=== PATIENT | female | born 1990 | race Caucasian/White ===

== ENCOUNTER 2017-04-12 13:35 | Emergency (ER) | payer OTHER ==
[~2017-04-12] VITALS: Ht 162.6 cm; Wt 86.2 kg
[~2017-04-12 13:35] MED LIST: AUGMENTIN 875-1 EACH PO; BENZONATATE200 MG PO; CLARITIN10 MG PO; DELTASONE5 MG PO; FIORICET 325 MG1 TAB PO; FIORICET1 CAP PO; FLAGYL 250MG.250 MG PO; IRON TABLETS325 MG PO; MOTRIN 400MG.400 MG PO; MUCINEX600 M1 PO; PRENATAL1 TA2 PO; SEPTRA DS 800 M1 TAB PO
--- OUTSIDE RECORDS SUMMARY | 2017-04-12 13:39 | External Medical Summary Rpt ---
Author Author [employer] Organization [employer] Address Unknown Phone Unavailable Purpose Continuity of Care Document - through 2016
--- OUTSIDE RECORDS SUMMARY | 2017-04-12 13:39 | External Medical Summary Rpt ---
Author Author JERRY Villarreal, [employer] Organization [employer] Address Unknown Phone Unavailable
--- OUTSIDE RECORDS SUMMARY | 2017-04-12 13:39 | External Medical Summary Rpt ---
Demographics Preferred Language Macanese Marital Status Unknown Hoahaoism Affiliation Unknown Race Unknown Ethnic Group Unknown Author Author , Organization [employer] Address Unknown Phone Unavailable Purpose Continuity of Care Document - through 2016 Immunization No patient found.
--- OUTSIDE RECORDS SUMMARY | 2017-04-12 13:39 | External Medical Summary Rpt ---
Author Author , Organization [employer] Address Unknown Phone Unavailable Care Team Providers Care Bioinformatics Team Member Name Role Phone Naif Conley MD, Unavailable Unavailable Naif Conley MD Purpose Continuity of Care Document - 11-16-2013 through 2016 Problems Code Diagnosis DOS Provider Status 644.03 644.03 THRT 11-17-2013 [facility] ART Allergies, Adverse Reactions, Alerts Type Drug Allergy Adverse Reaction to Substance Substance Reaction Severity Azithromycin Unknown Unknown Medications Na ND Rx Da Fi Fi Am Da Di Ph RX Ph St me C No te ll ll ou ys ag ar # ys at rm s nt no ma ic us Or Da si cy ia de te s n re d MA 00 01 0 No PA 90 -1 P 41 1- Lo 32 98 20 ng 5 26 14 er MG 1 Ac TA ti BL ve ET LA [address] 40 -1 AT 97 0- Lo ED 95 20 ng 30 14 er RI 9 NG Ac ER ti S ve IN JE CT IO N MA 00 01 1 No GN 40 -1 ES 96 0- Lo IU 72 20 ng M 90 14 er VALENCIA 3 LF Ac ti 20 ve G/ 50 0 ML BA G TE 63 01 0 No RB 32 -1 UT 30 0- Lo AL 66 20 ng IN 50 14 er E 1 VALENCIA Ac LF ti 1 ve MG /M L AL DI 00 01 0 No PH 90 -1 EN 45 0- Lo HY [address] 66 14 er AM 1 IN Ac E ti 25 ve MG CA PS UL E Results Labs Lab Lab Date Result Refere Interp Status Commen Order Detail nces retati t Range on Magnesium SerPl-mCnc (11-17-2013 04:55) Magnesi 5.4 1.4-2.2 complet um 014 mg/dL ed SerPl-m 04:55 Cnc URINALYSIS/COMPLETE (11-16-2013 10:20) URINE STRAW YELLOW complet COLOR 014 ed 10:20 URINE CLEAR CLEAR complet APPEARA 014 ed NCE 10:20 URINE NEGATIV NEG complet GLUCOSE 014 E ed - 10:20 DIPSTIC K URINE NEGATIV NEG complet BILIRUB 014 E ed IN - 10:20 DIPSTIC K URINE NEGATIV NEG complet KETONE 014 E mg/dL ed 10:20 URINE Less 1.005-1 complet SPECIFI 014 than or .030 ed C 10:20 equal GRAVITY to 1.005 URINE NEGATIV NEG complet BLOOD 014 E ed 10:20 URINE 7.5 UNK 5.0-8.5 complet PH 014 ed 10:20 URINE NEGATIV NEG complet PROTEIN 014 E mg/dL ed - 10:20 DIPSTIC K URINE 0.2 NEG complet UROBILI 014 E.U./dL ed NOGEN - 10:20 DIPSTIC K URINE NEGATIV NEG complet NITRATE 014 E ed - 10:20 DIPSTIC K URINE NEGATIV NEG complet LEUK 014 E ed ESTERAS 10:20 E URINE 3-5 0 complet RBC 014 rbc/hpf ed 10:20 URINE OCC O complet WBC 014 wbc/hpf ed 10:20 URINE OCC 0-5 complet SQUAMOU 014 #/hpf ed S CELLS 10:20 Encounters Encounter Start End Date Code Location Performer Type Date Inpatient IMP Raymundo Conley MD ([place]) 4 10:00 4 13:30 [facility]
--- OUTSIDE RECORDS SUMMARY | 2017-04-12 13:39 | External Medical Summary Rpt ---
Author Author , Organization [employer] Address Unknown Phone Unavailable Care Team Providers Care Optical Lab Technician Name Role Phone Naif Conley MD, Unavailable Unavailable Naif Conley MD Purpose Continuity of Care Document - 11-16-2013 through 2016 Problems Code Diagnosis DOS Provider Status 644.03 644.03 THRT 11-17-2013 [facility] ART Allergies, Adverse Reactions, Alerts Type Drug [...] Conley MD ([place]) 4 10:00 4 13:30 [facility]
--- OUTSIDE RECORDS SUMMARY | 2017-04-12 13:39 | External Medical Summary Rpt ---
Demographics Preferred Language Grenadian Marital Status Unknown Jain Affiliation Unknown Race Unknown Ethnic Group Unknown Author Author , Organization [employer] Address Unknown Phone Unavailable Purpose Continuity of Care Document - through 2016 Immunization No patient found.
[2017-04-12] MEDS ORDERED: PRENATAL PLUS1 TA1 PO (13:47)
[2017-04-12] MEDS ORDERED: CLARITIN 10MG T10 MG PO (13:48)
--- NOTE | 2017-04-12 14:30 | Urgent Treatment Center Report ---
History of Present Issue Date/Time Seen by Provider 04/12/17 1429 Visit Reason Pt arrived:Walked Presenting Problem:PT STATES SORE THROAT AND HEAD CONGESTION THAT BEGAN YESTERDAY Location if Accident: Onset of symptoms date/time:04/11/17/ or onset unknown for:MEDICAL HX UNKNOWN Have you (or family members/close friends) recently traveled outside the [place]? N If Yes, where/when: Have you had exposure to infectious disease within the past month? TB? Other? Specify: Source patient Exam Limitations no limitations Comment 27-year-old female presents for nasal congestion, sinus pressure, and sore throat that started 3 days ago. Patient states she is 11 weeks preg ALLERGIES Coded Allergies: azithromycin (12/14/16) Home Medications Reported Medications MULTIVIT-MIN W/FE-FA ( Multivitamin Tablet) 1 TAB PO DAILY Loratadine (Claritin 10MG) 10 MG PO DAILY History Medical History General CAD? No Angina: No [place]: No Hypertension? No Hyperlipidemia? No CHF? No DVT? No PE? No COPD? No Asthma? No Anemia? No GERD? No Gastric ulcers? No GI Bleed? No Hernia? No Thyroid Problems? No Hypothyroidism? No CVA? No Seizures? No Diabetes? No Renal Insuffiency? No UTI? No Stones? No GB Disease: No Nephritic Syndrome? No Asplenia? No Hepatitis? No Sickle Cell Disease? No Arthritis? No Migraines? No Cataracts? No Glaucoma? No MRSA? No HIV? No TB? No Anxiety? No Depression? No Cancer? 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 Respiratory see HPI Physical Exam Vital Signs Vital Signs Date Time Temp Pulse Resp B/P Pulse O2 O2 Flow FiO2 Ox Delivery Rate 04/12 1346 97.9 91 20 141/92 99 - WBC >12,000 or <4,000 or 10% bands? 2 or more SIRS Criteria Met? B/P:141/92 MAP:108 Creatinine >2.0? UA output<0.5ml/kg/hr for 2 hrs? Platelet count >100,000? Lactate >2.0mmol/1? INR >1.2 or PTT > than 60 sec? Evidence of Organ Dysfunction? Provider documented clinical suspician of infection? Sepsis Criteria Count: 2 Sepsis Risk: General Appearance normal appearance, no apparent distress Eye Exam - bilateral eye normal exam, bilateral eye PERRL, bilateral eye EOMI Ear, Nose, Throat hearing grossly normal, nasal congestion, tonsillar exudate, tonsillar swelling Neck normal inspection, full range of motion Respiratory Status Yes: trachea midline, chest symmetrical. No: respiratory distress. Lung Sounds bilateral: normal breath sounds, lungs clear. Cardiovascular normal exam, regular rate/rhythm, no peripheral edema Neurologic alert, normal exam, oriented x 3 Medical Decision Making LABS/Meds/Orders Pt receiving controlled substance in ED? No Results/Orders Laboratory Tests 04/12/17 1430: Group A Strep Screen NOT DETECTED Orders Procedure Date/time Status [facility] STREP SCREEN 04/12 1427 Complete Departure Departure Time of Disposition 1456 Disposition DC Home or Self Care(routine) Clinical Impression Primary Impression: Sore throat Condition STABLE Patient Instructions Sore Throat Additional Instructions Tylenol for fever or pain. Salt water gargles every 2 hours as needed, antibiotics as ordered follow-up with PCP if symptoms worsen or do not improve return to the ER Discharge Counseling Counseled pt/family regarding diagnosis, test results, medications/RX, home care, follow up needs Prescriptions Current Visit Scripts Amoxicillin (Amoxicillin 500MG) 500 MG PO BID 10 Days at 7593
--- NOTE | 2017-04-12 14:30 | Urgent Treatment Center Report ---
History of Present Issue Date/Time Seen by Provider 04/12/17 1429 Visit Reason Pt arrived:Walked Presenting Problem:PT STATES SORE THROAT AND HEAD CONGESTION THAT BEGAN YESTERDAY Location if Accident: Onset of symptoms date/time:04/11/17/ or onset unknown for:MEDICAL HX UNKNOWN Have you (or family members/close friends) recently traveled outside the [place]? N If Yes, where/when: Have you had exposure to infectious disease within the past month? TB? Other? Specify: Source patient Exam Limitations no limitations Comment 27-year-old female presents for nasal congestion, sinus pressure, and sore throat that started 3 days ago. Patient states she is 11 weeks preg ALLERGIES Coded Allergies: azithromycin (12/14/16) Home Medications Reported Medications MULTIVIT-MIN W/FE-FA ( Multivitamin Tablet) 1 TAB PO DAILY Loratadine (Claritin 10MG) 10 MG PO DAILY History Medical History General CAD? No Angina: No [place]: No Hypertension? No Hyperlipidemia? No CHF? No DVT? No PE? No COPD? No Asthma? No Anemia? No GERD? No Gastric ulcers? No GI Bleed? No Hernia? No Thyroid Problems? No Hypothyroidism? No CVA? No Seizures? No Diabetes? No Renal Insuffiency? No UTI? No Stones? No GB Disease: No Nephritic Syndrome? No Asplenia? No Hepatitis? No Sickle Cell Disease? No Arthritis? No Migraines? No Cataracts? No Glaucoma? No MRSA? No HIV? No TB? No Anxiety? No Depression? No Cancer? 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 Respiratory see HPI Physical Exam Vital Signs Vital Signs Date Time Temp Pulse Resp B/P Pulse O2 O2 Flow FiO2 Ox Delivery Rate 04/12 1346 97.9 91 20 141/92 99 - WBC >12,000 or <4,000 or 10% bands? 2 or more SIRS Criteria Met? B/P:141/92 MAP:108 Creatinine >2.0? UA output<0.5ml/kg/hr for 2 hrs? Platelet count >100,000? Lactate >2.0mmol/1? INR >1.2 or PTT > than 60 sec? Evidence of Organ Dysfunction? Provider documented clinical suspician of infection? Sepsis Criteria Count: 2 Sepsis Risk: General Appearance normal appearance, no apparent distress Eye Exam - bilateral eye normal exam, bilateral eye PERRL, bilateral eye EOMI Ear, Nose, Throat hearing grossly normal, nasal congestion, tonsillar exudate, tonsillar swelling Neck normal inspection, full range of motion Respiratory Status Yes: trachea midline, chest symmetrical. No: respiratory distress. Lung Sounds bilateral: normal breath sounds, lungs clear. Cardiovascular normal exam, regular rate/rhythm, no peripheral edema Neurologic alert, normal exam, oriented x 3 Medical Decision Making LABS/Meds/Orders Pt receiving controlled substance in ED? No Results/Orders Laboratory Tests 04/12/17 1430: Group A Strep Screen NOT DETECTED Orders Procedure Date/time Status [facility] STREP SCREEN 04/12 1427 Complete Departure Departure Time of Disposition 1456 Disposition DC Home or Self Care(routine) Clinical Impression Primary Impression: Sore throat Condition STABLE Patient Instructions Sore Throat Additional Instructions Tylenol for fever or pain. Salt water gargles every 2 hours as needed, antibiotics as ordered follow-up with PCP if symptoms worsen or do not improve return to the ER Discharge Counseling Counseled pt/family regarding diagnosis, test results, medications/RX, home care, follow up needs Prescriptions Current Visit Scripts Amoxicillin (Amoxicillin 500MG) 500 MG PO BID 10 Days at 1648
[2017-04-12] MEDS ORDERED: AMOXICOT500 MG PO (14:58)
[2017-04-12 15:23] VITALS: BP 141/92
== END 2017-04-12 15:24 | disposition home or self-care (01) ==
LOC: UTC 13:35
DX: J02.9 Acute pharyngitis, unspecified (principal); Z33.1 Pregnant state, incidental

== ENCOUNTER 2017-07-16 17:20 | Emergency (ER) | payer OTHER ==
[~2017-07-16] VITALS: Ht 162.6 cm; Wt 83.9 kg
[~2017-07-16 17:20] MED LIST changes: +AMOXICOT500 MG PO; +CLARITIN 10MG T10 MG PO; +PRENATAL PLUS1 TA1 PO
--- NOTE | 2017-07-16 17:31 | Emergency Room Report ---
History of Present Illness Time Seen by [id number] Presenting Problem in Triage Pt arrived:Walked Presenting Problem:STATES SHE BEGAN EXPERIENCING CHEST PAIN OVER COURSE OF LAST TWO HOURS THAT HAS PROGRESSIVELY WORSENED. 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 N Clinical Suspician of Infection? N Mental Status: 1 - Regular (Normal Baseline) Sepsis Risk:Low Sepsis Risk Have you (or family members/close friends) recently traveled outside the [place]? N If Yes, where/when: Have you had exposure to infectious disease within the past month? TB? Other? Specify: Comment The patient complains of chest pain. She says she was sitting on the couch at 4 PM when she developed sudden onset of sternal pain, lower sternum that radiated upward. It worsens when she lays down. It does not worsen with breathing. She is not short of breath. She has some back pain. She had some nausea but no vomiting. No diaphoresis. No cough or fever. No leg pain or swelling. She had a D and C one month ago for miscarriage. ALLERGIES Coded Allergies: azithromycin (07/16/17) Home Medications Active Scripts Amoxicillin (Amoxicillin 500MG) 500 MG PO BID 10 Days Prov: 04/12/17 Reported Medications MULTIVIT-MIN W/FE-FA ( Multivitamin Tablet) 1 TAB PO DAILY Loratadine (Claritin 10MG) 10 MG PO DAILY History Medical History General CAD? No Angina: No [place]: No Hypertension? No Hyperlipidemia? No CHF? No DVT? No PE? No COPD? No Asthma? No Anemia? No GERD? No Gastric ulcers? No GI Bleed? No Hernia? No Thyroid Problems? No Hypothyroidism? No CVA? No Seizures? No Diabetes? No Renal Insuffiency? No End Stage Renal Disease? No UTI? No Stones? No GB Disease: No Nephritic Syndrome? No Asplenia? No Hepatitis? No Sickle Cell Disease? No Arthritis? No Migraines? No Cataracts? No Glaucoma? No MRSA? No HIV? No TB? No Anxiety? No Depression? No Cancer? 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 Family History Family Hx Diabetes Yes Hypertension Yes Cancer No TB Yes Social History Smoking Hx Smoker: Never Smoker Tobacco: No Type N/A Are you/the child exposed to second-hand smoke: No Alcohol Alcohol: No Review of Systems All Other Systems Reviewed and Negative Constitutional denies diaphoresis, denies fever Respiratory denies cough, denies shortness of breath Cardiovascular chest pain Gastrointestinal denies abdominal pain, nausea, denies vomiting Musculoskeletal back pain Physical Exam Vital Signs Vital Signs Date Time Temp Pulse Resp B/P Pulse O2 O2 Flow FiO2 Ox Delivery Rate 07/16 1820 20 07/16 1722 98.3 97 18 167/92 98 General Appearance normal appearance, WD/WN Eye Exam - bilateral eye normal exam, bilateral eye PERRL, bilateral eye EOMI Ear, Nose, Throat hearing grossly normal, normal ENT inspection Neck normal inspection, non-tender, supple, full range of motion Respiratory Status Yes: trachea midline, chest symmetrical, non tender chest. No: respiratory distress. Lung Sounds bilateral: normal breath sounds, lungs clear. Cardiovascular normal exam, regular rate/rhythm, no peripheral edema, no gallop, no JVD, no murmur, no rub, normal peripheral pulses Peripheral Pulses Pulses normal Yes Gastrointestinal normal bowel sounds, normal exam, non tender, soft, no organomegaly Back normal inspection Extremities non-tender, normal range of motion, normal inspection, no calf tenderness, no pedal edema Neurologic alert, normal exam, oriented x 3 Mental status normal mood/affect Skin intact, normal color, warm/dry Medical Decision Making LABS/Meds/Orders Pt receiving controlled substance in ED? No Results/Orders Laboratory Tests 07/16/17 1725: Sodium 138, Potassium 3.5, Chloride 103, Carbon Dioxide 25, BUN 13, Creatinine 1.0, Estimated Creat Clear 114, Estimated GFR (MDRD) 68, Glucose 97, Calcium 9.1 , Total Bilirubin 0.3, AST 16, ALT 24, Alkaline Phosphatase 66, Creatine Kinase 55, CK-MB (CK-2) Rel Index 0.9, CK and CKMB Interp < 0.5, Troponin I < 0.02, Total Protein 7.9, Albumin 3.7, Globulin 4.2 H, Albumin/Globulin Ratio 0.9 L, D-Dimer 805 *H, WBC 8.6, RBC 5.07, Hgb 14.1, Hct 42.5, MCV 83.8, RDW 12.6, Plt Count 253, MPV 8.6, Gran % 55.7, Gran # 4.8, Lymphocytes % 36.0, Monocytes % 5.3 , Eosinophils % 2.4, Basophils % 0.7, Lymphocytes # 3.1, Monocytes # 0.5, Eosinophils # 0.2, Basophils # 0.1, PUBS MCHC 33.2, MCH 27.8 Current Medication Orders Sig/Cresencio Start time Last Medication Dose Route Stop Time Status Admin Iopamidol 75 ML ONCE ONE 07/16 184 UNV 07/16 IV 07/16 184 1838 Sodium Chloride 10 ML PRN PRN 07/16 184 UNV 07/16 IV 07/16 2007 1838 Ketorolac 0 .STK-MED ONE 07/16 181 DC Tromethamine .ROUTE Ketorolac 30 MG ONCE ONE 07/16 1815 DC 07/16 Tromethamine IV 07/16 1816 1820 Aspirin 324 MG ONCE ONE 07/16 1730 DC 07/16 PO 07/16 1731 1732 Sodium Chloride 10 ML PRN PRN 07/16 1730 AC IV 07/17 1726 Aspirin 0 .STK-MED ONE 07/16 1728 DC .ROUTE Orders Procedure Date/time Status DIET-NOTHING BY MOUTH 07/17 B Active CTA-CHEST 07/[address] CHEST W/PE PROTOCOL REQ 07/16 180 Active SERUM , QUAL 07/16 1803 Complete D-DIMER 07/16 1741 Complete ELECTROCARDIOGRAM REQUEST 07/16 1727 Active CHEST(2 VIEWS-NOT PORTABLE) 07/16 172 Active IV SALINE LOCK 07/16 1727 Active CBC WITH AUTO DIFF 07/16 172 Complete CARDIAC ENZYMES 07/16 172 Complete CHEM 12 PROFILE 07/16 172 Complete 12 LEAD EKG-ALIZE (INITIAL) 07/16 UNK Active CM/EKG CM/EKG Comments EKG interpreted by Kirill Malcolm MD: Rhythm: sinus Rate: 91 [place]: normal Ectopy: none Conduction: normal ST Segment Changes: none T Wave Changes: none Q Waves: none No evidence of acute ischemia or injury Poor R-wave progression XRAY/CT/US XRAY/CT/US XRAY chest Comment X-ray interpreted by Kirill Malcolm M.D.: Increased density on the lateral view anteriorly CT chest Comment Pulmonary angiogram CT scan interpreted by [facility] radiologist. Faxed report received and reviewed: Negative Progress - 7:20 PM: Patient states she feels much better and would like to be discharged. I feel this is reasonable. I estimate there is LOW risk for PULMONARY EMBOLISM, ACUTE CORONARY SYNDROME, OR THORACIC AORTIC DISSECTION, thus I consider the discharge disposition reasonable. Departure Departure Disposition DC Home or Self Care(routine) Clinical Impression Primary Impression: Atypical chest pain Condition STABLE Referrals Obie Seay APRN (Family) Patient Instructions DI for Atypical Chest Pain Additional Instructions Tylenol for pain. May take Prilosec or Pepcid as well. Additional instructions for CHEST PAIN: See your physician as soon as possible for further evaluation. Return immediately if worsening chest pain, vomiting, shortness of breath, fever, coughing of blood. Discharge Counseling Counseled pt/family regarding diagnosis, test results, medications/RX, home care, follow up needs ED Critical Care Critical Care No at 1931
[2017-07-16 17:40] LABS: HEMOGLOBIN 14.1 g/dL (12.2-16.2); LYMPH # 3.1 K/mm3 (0.7-4.5)
[2017-07-16 18:06] LABS: BUN 13 mg/dL (7-18); GFR (ESTIMATED) 68 ML/MIN (59-)
[2017-07-16 19:58] VITALS: BP 152/95
--- NOTE | 2017-07-17 08:18 | RADIOLOGY REPORT PS360 ---
CHEST(2 VIEWS-NOT PORTABLE) HISTORY: Chest pain CP ORDERING PHYSICIAN: Kirill Malcolm MD PATIENT AGE: 27 years COMPARISON: 12/14/2016 FINDINGS: The cardiomediastinal silhouette and pulmonary vascularity are within normal limits. The lungs are clear without infiltrates, suspicious nodules, or pleural effusions. No acute bony abnormalities. IMPRESSION: Negative chest, no acute finding
--- NOTE | 2017-07-17 09:32 | RADIOLOGY REPORT PS360 ---
CTA-CHEST HISTORY: CHEST PAIN, ELEVATED D-DIMER ORDERING PHYSICIAN: Kirill Malcolm MD PATIENT AGE: 27 years TECHNIQUE: Helical acquisition obtained following the bolus administration of 60 mL of Isovue 370 followed by a saline bolus. Axial, sagittal, and coronal reformatted images are generated and reviewed. COMPARISON: None FINDINGS: There is no evidence of pulmonary embolus or aortic aneurysm or dissection. No mediastinal or hilar mass or pericardial thickening. The lungs are clear. Thyroid gland is somewhat prominent and incompletely imaged. No effusions or infiltrates. No acute bony anomalies. Upper abdominal images are unremarkable. IMPRESSION: No evidence of pulmonary embolus or aortic aneurysm. No acute finding
== END 2017-07-16 19:45 | disposition home or self-care (01) ==
LOC: ER 17:20
PROVIDERS: Emergency Medicine
DX: R07.89 Other chest pain (principal)
CPT/HCPCS: Q9967

== ENCOUNTER → 2017-08-03 | Outpatient (CLI) | payer OTHER ==
--- NOTE | 2017-08-03 08:55 | RADIOLOGY REPORT PS360 ---
US RUQ-(ABD LTD)1ORGAN/QUAD/FU HISTORY: Right upper quadrant pain PAIN RUQ ORDERING PHYSICIAN: NORIS SMITH PATIENT AGE: 27 years COMPARISON: None FINDINGS: PANCREAS:Unremarkable. No obvious mass or abnormal fluid collection. No ductal dilatation LIVER:No focal liver lesions demonstrated. Homogeneous echogenicity. No intrahepatic biliary ductal dilatation evident RIGHT KIDNEY:There is some cortical scarring along the lower pole the right kidney. Normal size and echogenicity. No hydronephrosis GALLBLADDER: The gallbladder is contracted and filled with stones. Common bile duct is normal at 5 mm. No pericholecystic fluid or gallbladder wall thickening. AORTA:No evidence of aneurysmal dilatation. IMPRESSION: Cholelithiasis. Contracted gallbladder filled with stones. No biliary dilatation or pericholecystic fluid
== END ==
LOC: RAD 07:53
DX: R10.11 Right upper quadrant pain (principal)

== ENCOUNTER → 2017-08-10 | Outpatient (CLI) | payer OTHER ==
[~2017-08-10] MED LIST changes: +VENLAFAXINE H37.5 M2 PO
[2017-08-10 12:26] LABS: LYMPH # 1.8 K/mm3 (0.7-4.5); LYMPH % 30.5 % (10-50.0)
[2017-08-10 13:10] LABS: BUN 11 mg/dL (7-18)
[2017-08-10 13:12] LABS: GFR (ESTIMATED) 76 ML/MIN (59-)
== END ==
LOC: LAB 12:17
PROVIDERS: Physician Assistant
DX: K80.20 Calculus of gallbladder without cholecystitis without obstruction (principal)

== ENCOUNTER 2017-08-19 06:46 | Day surgery (SDC) | payer OTHER ==
[~2017-08-19] VITALS: Ht 162.6 cm; Wt 83.0 kg
[~2017-08-19 06:46] MED LIST changes: -VENLAFAXINE H37.5 M2 PO
--- NOTE | 2017-08-19 09:48 | Operative Note ---
Surgeon/Diagnoses Surgeon/Battery Container Finishing Hand(s) Date of procedure: 08/19/17 Surgeon: MD Edward Solano Battery Container Finishing Hand(s): Lewis Jain Diagnoses Pre-op diagnosis: Chronic calculus cholecystitis Post-op diagnosis Same Procedure Procedure Procedure: Laparoscopic cholecystectomy Indications: SHARIF HARRIS is a 27 year-old Female with a history of RIGHT upper quadrant pain and radiographic evidence of chronic calculus cholecystitis. Findings: Moderate pericholecystic fat stranding Significant chronic inflammation and thickening of tissue in and around the infundibulum Procedure Description: After informed consent was obtained, the patient was taken to the operating room and placed in the supine position. General anesthesia was induced and the patient's abdomen was prepped and draped in a sterile fashion. After infiltration with local anesthetic an infraumbilical incision was made. A Veress needle was placed in position. The abdomen was insufflated. A 5 mm optical trocar was placed in position. Under direct visualization, 2 additional 5 mm trocars were placed in the RIGHT upper quadrant. A 12 mm trocar was placed in the subxiphoid position. The gallbladder was elevated up and over the liver margin. The tissue around the cystic duct was carefully dissected. There was significant thickening of tissue in and around the infundibulum and dissection was very difficult. Clips were placed proximally and the duct was transected at the infundibulum utilizing harmonic thelma. Harmonic thelma were then utilized to remove the gallbladder from the liver margin. The gallbladder was placed in a retrieval bag and removed through the subxiphoid trocar site. The RIGHT upper quadrant was thoroughly irrigated. No active bleeding or bile leak was noted. The fascia at the subxiphoid trocar site was reapproximated utilizing the josé- close device. Pneumoperitoneum was released as the remaining trocars were removed. All wounds were irrigated and skin was closed with 4-0 Monocryl in a subcuticular fashion. Steri-Strips were applied and the patient's anesthetic agents were reversed. After extubation, the patient was transferred to recovery in stable condition. EBL (ml): 15 Anesthesia: GETA Complications: No immediate Specimens: Gallbladder and contents Disposition Disposition: Stable to recovery from where she will be discharged home. She will follow-up in 1-2 weeks. at 4058
--- NOTE | 2017-08-19 09:59 | Anesthesia Record ---
Anesthesia Record Part I Total IV fluids: 1400 EBL (ml): 0 Urine Output: 0 B/P: 136/97 % SaO2: 95 Pulse: 107 Resps: 12 Temp: 98.3 Patient is: Awake, Stable Stable to PACU at: 1000 at 0959
--- NOTE | 2017-08-19 10:00 | Anesthesia Record ---
Anesthesia Record Part II Discharge time: 1030 Destination: Same day surgery PACU nurse assessment review? Yes Patient is: Awake, Stable Anesthesia complications? No at 0962
[2017-08-19 17:19] VITALS: BP 139/87
== END 2017-08-19 11:25 | disposition home or self-care (01) ==
LOC: SDC 06:46
PROVIDERS: Surgery
PROC: 0FT44ZZ Resection of Gallbladder, Percutaneous Endoscopic Approach (ICD-10-PCS; principal; 2017-08-19 08:45)
DX: K80.10 Calculus of gallbladder with chronic cholecystitis without obstruction (principal)
CPT/HCPCS: J0131; J2405

== ENCOUNTER 2017-08-21 10:06 | Emergency (ER) | payer OTHER ==
[~2017-08-21] VITALS: Ht 162.6 cm; Wt 83.9 kg
[2017-08-21] MEDS ORDERED: VENLAFAXINE H37.5 M2 PO (10:14)
--- NOTE | 2017-08-21 10:29 | Urgent Treatment Center Report ---
History of Present Issue Date/Time Seen by Provider 08/21/17 1029 Visit Reason Pt arrived:Walked Presenting Problem:PT ADVISES SHE IS HAVING TROUBLE WITH HER VISION. PUT HER CONTACTS IN THIS MORNING AND NOTICED THEY LOOKED FUNNY, PUT HER GLASSES ON AND HER VISION DIDN'T IMPROVE Location if Accident: Onset of symptoms date/time:/ or onset unknown for:MEDICAL HX UNKNOWN Have you (or family members/close friends) recently traveled outside the [place]? N If Yes, where/when: Have you had exposure to infectious disease within the past month? TB? Other? Specify: Source patient, RN notes reviewed, family Exam Limitations no limitations Comment Patient presents with blurred vision. States that she inserted her contacts this morning and eyes felt "weird". She removed her contacts and put on her glasses and still blurry. She can see at a distance, but not up close. She had laparoscopic cholecystectomy 2 days prior. She was intubated. Her contacted Dr Solano, the surgeon, this am and he didn't feel it would be an anesthesia side effect appearing 2 days later. Patient denies headache. Denies dizziness. Denies palpitations. States she stopped taking pain medication yesterday because it made her have a dry mouth ( [place]). She is still having nausea. She had nausea and vomiting for several weeks prior to her surgery. She isn't vomiting now. States she was given a scopolamine patch prior to surgery and removed it this morning. ALLERGIES Coded Allergies: azithromycin (Intermediate, I-HIVES 08/19/17) Home Medications Reported Medications VENLAFAXINE HCL (Venlafaxine HCl ER) 37.5 MG PO DAILY #30 History Medical History General CAD? No Angina: No [place]: No Hypertension? No Hyperlipidemia? No CHF? No DVT? No PE? No COPD? No Asthma? No Anemia? No GERD? No Gastric ulcers? No GI Bleed? No Hernia? No Thyroid Problems? No Hypothyroidism? No CVA? No Seizures? No Diabetes? No Renal Insuffiency? No UTI? Yes Stones? No GB Disease: Yes Nephritic Syndrome? No Asplenia? No Hepatitis? No Sickle Cell Disease? No Arthritis? No Migraines? No Cataracts? No Glaucoma? No MRSA? No HIV? No TB? No Anxiety? No Depression? No Cancer? 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 2 or more SIRS Criteria Met? B/P:139/83 MAP:101 Creatinine >2.0? UA output<0.5ml/kg/hr for 2 hrs? Platelet count >100,000? Lactate >2.0mmol/1? INR >1.2 or PTT > than 60 sec? Evidence of Organ Dysfunction? Provider documented clinical suspician of infection? Sepsis Criteria Count: 0 Sepsis Risk: General Appearance normal appearance, no apparent distress Eye Exam - bilateral eye other Comment bilateral pupil dilation with absolutely no constriction with light Ear, Nose, Throat hearing grossly normal, normal ENT inspection Respiratory Status No: respiratory distress, trachea midline, chest symmetrical. Lung Sounds bilateral: normal breath sounds, lungs clear. Cardiovascular normal exam, regular rate/rhythm, no peripheral edema, no gallop, no JVD, no murmur, no rub Extremities non-tender, normal range of motion, normal inspection, normal capillary refill Neurologic alert, normal exam, oriented x 3 Mental status normal mood/affect Medical Decision Making LABS/Meds/Orders Pt receiving controlled substance in ED? No Departure Departure Time of Disposition 1050 Disposition DC Home or Self Care(routine) Clinical Impression Primary Impression: Mydriasis Secondary Impressions: Poisoning, scopolamine Qualifiers: Encounter type: initial encounter Injury intent: accidental or unintentional Qualified Code: T44.3X1A - Poisoning by other parasympatholytics [ anticholinergics and antimuscarinics] and spasmolytics, accidental ( unintentional), initial encounter Condition STABLE Referrals SULEIMAN RODRIGEZ (Family) Patient Instructions DI for Visual Field Disturbances, Scopolamine Transdermal Patch Additional Instructions Rest, fluids. F/u with opthalmology if symptoms persist > 48 hours. RTC/ER if headache, pain, vomiting, dizziness, altered consciousness. Discharge Counseling Counseled pt/family regarding diagnosis, home care, follow up needs at 1051
[2017-08-21 10:58] VITALS: BP 139/83
== END 2017-08-21 10:58 | disposition home or self-care (01) ==
LOC: UTC 10:06
DX: H57.04 Mydriasis (principal); T44.3X1A Poisoning by other parasympatholytics [anticholinergics and antimuscarinics] and spasmolytics, accidental (unintentional), initial encounter; Z88.1 Allergy status to other antibiotic agents

== ENCOUNTER 2017-09-27 10:36 | Emergency (ER) | payer OTHER ==
[~2017-09-27] VITALS: Ht 162.6 cm; Wt 83.9 kg
[~2017-09-27 10:36] MED LIST changes: +VENLAFAXINE H37.5 M2 PO
--- OUTSIDE RECORDS SUMMARY | 2017-09-27 10:40 | External Medical Summary Rpt | CCD ---
Demographics Preferred Language Yakut Marital Status Unknown Sikh Affiliation Unknown Race Unknown Ethnic Group Unknown Author Author JERRY Address Unknown Phone Immunization No patient found.
--- OUTSIDE RECORDS SUMMARY | 2017-09-27 10:40 | External Medical Summary Rpt | CCD ---
Demographics Preferred Language Sinhala Marital Status Unknown Bahai Affiliation Unknown Race Unknown Ethnic Group Unknown Author Author JERRY Address Unknown Phone Immunization No patient found.
--- OUTSIDE RECORDS SUMMARY | 2017-09-27 10:40 | External Medical Summary Rpt | CCD ---
Author Author , JERRY EDWARDS Address Unknown Phone [email or web address] Care Team Providers Care Real Estate Appraiser Name Role Phone Naif Conley MD, Unavailable Unavailable Naif Conley MD Purpose Continuity of Care Document - 11-16-2013 through 2016 Problems Code Diagnosis DOS Provider Status 644.03 644.03 THRT 11-17-2013 [facility] ART O28.3 Abnormal ultrasonic finding on screening of mother R07.89 OTHER CHEST PAIN Allergies, Adverse Reactions, Alerts Type Drug Allergy [...] Order Detail nces retati t Range on Urine test (08-19-2017 07:00) Urine 10-13-2 = NEG complet pregnan 017 NEGATIV ed cy test 07:00 E Streptococcus pyogenes Ag [Presence] in Unspecified specimen (04-12-2017 14:30) Strepto NOT NOTDETE complet coccus [address] ed pyogene 14:30 D s Ag [Presen ce] in Unspeci fied specime n Magnesium SerPl-mCnc (11-17-2013 04:55) Magnesi 5.4 1.4-2.2 [...] Conley MD (IN) 4 10:00 4 13:30 [facility]
--- OUTSIDE RECORDS SUMMARY | 2017-09-27 10:40 | External Medical Summary Rpt ---
Author Author JERRY Villarreal, JERRY [employer] Organization [employer] Address Unknown Phone Unavailable Results Choriogonadotropin.beta subunit [Units] in 24 hour Urine Observa Value Referen Units Interpr Notes Date tion ce etation Range Choriogon NEG No No No Oct 13 adotropin informati informati informati 2017 7:00 .beta on in on in on in AM subunit source source source [Units] data data data in 24 hour Urine Comprehensive metabolic 2000 panel in Serum or Plasma Observa Value Referen Units Interpr Notes Date tion ce etation Range Albumin/G 1.1 - 1.8 No Low No Oct 4 lobulin informati informati 2017 9:40 [Mass on in on in AM ratio] in source source Serum or data data Plasma Albumin 3.4 - 5.0 gm/dL Normal No Oct 4 [Mass/vol informati 2017 9:40 ume] in on in AM Serum or source Plasma data Alkaline 46 - 116 U/L Normal No Oct 4 phosphata informati 2017 9:40 se on in AM [Enzymati source c data activity/ volume] in Serum or Plasma Bilirubin 0.2 - 1.0 mg/dL Normal No Oct 4 .total informati 2017 9:40 [Mass/vol on in AM ume] in source Serum or data Plasma Urea 7 - 18 mg/dL Normal No Oct 4 nitrogen informati 2017 9:40 [Mass/vol on in AM ume] in source Serum or data Plasma Calcium 8.5 - mg/dL Normal No Oct 4 [Mass/vol 10.1 informati 2017 9:40 ume] in on in AM Serum or source Plasma data Chloride 98 - 107 mmoL/L Normal No Oct 4 [Moles/vo informati 2017 9:40 lume] in on in AM Serum or source Plasma data Carbon 21.0 - mmoL/L Normal No Oct 4 dioxide, 32.0 informati 2017 9:40 total on in AM [Moles/vo source lume] in data Serum or Plasma Creatinin 0.55 - mg/dL Normal No Aug 4 e 1.02 informati 2016 9:40 [Mass/vol on in AM ume] in source Serum or data Plasma Estimated 59- ML/MIN No REFERENCE Aug 10 informati RANGE: 2017 9:40 glomerula on in >60 AM r source ML/MIN/1. filtratio data 73 SQUARE n rate METERSIf (GF this patient is -A merican, then multiply theresult by 1.210. Globulin 1.3 - 3.2 gm/dL High No Aug 10 [Mass/vol informati 2016 9:40 ume] in on in AM Serum source data Glucose 74 - 106 mg/dL Normal No Aug 4 [Mass/vol informati 2016 9:40 ume] in on in AM Serum or source Plasma data Potassium 3.5 - 5.1 mmoL/L Normal No Aug 10 informati 2016 9:40 [Moles/vo on in AM lume] in source Serum or data Plasma Sodium 136 - 145 mmoL/L Normal No Aug 10 [Moles/vo informati 2016 9:40 lume] in on in AM Serum or source Plasma data Aspartate 15 - 37 U/L Low No Aug 10 informati 2016 9:40 aminotran on in AM sferase source [Enzymati data c activity/ volume] in Serum or Plasma Alanine 12 - 78 U/L Normal No Aug 10 aminotran informati 2016 9:40 sferase on in AM [Enzymati source c data activity/ volume] in Serum or Plasma Protein 6.4 - 8.2 gm/dL Normal No Aug 10 [Mass/vol informati 2016 9:40 ume] in on in AM Serum or source Plasma data CBC W Auto Differential panel in Blood Observa Value Referen Units Interpr Notes Date tion ce etation Range Basophils 0 - 0.2 K/MM3 Normal No Aug 10 informati 2016 9:40 [#/volume on in AM ] in source Blood by data Automated count Basophils 0.1 - 2.0 % Normal No Aug 10 informati 2016 9:40 leukocyte on in AM s in source Blood by data Automated count Eosinophi 0.0 - 0.4 K/mm3 Normal No Aug 10 ls informati 2016 9:40 [#/volume on in AM ] in source Blood by data Automated count Eosinophi 0.1 - % Normal No Aug 10 ls/100 12.0 informati 2017 9:40 leukocyte on in AM s in source Blood by data Automated count Granulocy 1.8 - 7.8 K/mm3 Normal No Aug 10 aníbal informati 2016 9:40 [#/volume on in AM ] in source Blood by data Automated count Granulocy 37.0 - % Normal No Aug 10 aníbal/100 80.0 informati 2016 9:40 leukocyte on in AM s in source Blood by data Automated count Hematocri 37.0 - % Normal No Aug 10 t [Volume 47.0 informati 2016 9:40 on in AM Fraction] source of Blood data Hemoglobi 12.2 - g/dL Normal No Aug 10 n 16.2 informati 2016 9:40 [Mass/vol on in AM ume] in source Blood data Lymphocyt 0.7 - 4.5 K/mm3 Normal No Aug 10 es informati 2016 9:40 [#/volume on in AM ] in source Unspecifi data ed specimen by Automated count Lymphocyt 10 - 50.0 % Normal No Aug 10 es informati 2016 9:40 [#/volume on in AM ] in source Unspecifi data ed specimen by Automated count Erythrocy 27 - 31.2 pg Normal No Aug 10 te mean informati 2016 9:40 corpuscul on in AM ar source hemoglobi data n [Entitic mass] Erythrocy 31.8 - g/dl Normal No Aug 10 te mean 35.4 informati 2016 9:40 corpuscul on in AM ar source hemoglobi data n concentra tion [Mass/vol ume] by Automated count Erythrocy 82.2 - fl Normal No Aug 10 te mean 97.8 informati 2016 9:40 corpuscul on in AM ar volume source [Entitic data volume] by Automated count Monocytes 0.1 - 1.0 K/mm3 Normal No Aug 10 informati 2016 9:40 [#/volume on in AM ] in source Blood by data Automated count Monocytes 1.7 - 9.3 % Normal No Aug 10 / informati 2016 9:40 leukocyte on in AM s in source Blood by data Automated count Platelet 7.4 - fl Normal No Aug 10 mean 10.4 informati 2016 9:40 volume on in AM [Entitic source volume] data in Blood by Automated count Platelets 142 - 424 K/mm3 Normal No Aug 10 informati 2016 9:40 [#/volume on in AM ] in source Blood data Erythrocy 4.2 - 5.4 M/mm3 Normal No Aug 4 aníbal informati 2017 9:40 [#/volume on in AM ] in source Amniotic data fluid Erythrocy 11.5 - % Normal No Aug 4 te 17.5 informati 2017 9:40 distribut on in AM ion width source [Entitic data volume] by Automated count Leukocyte 4.8 - K/MM3 Normal No Oct 4 s 10.8 informati 2016 9:40 [#/volume on in AM ] in source Blood data CBC W Auto Differential panel in Blood Observa Value Referen Units Interpr Notes Date tion ce etation Range Basophils 0 - 0.2 K/MM3 Normal No Sep 9 informati 2017 5:25 [#/volume on in PM ] in source Blood by data Automated count Basophils 0.1 - 2.0 % Normal No Sep 9 /100 informati 2017 5:25 leukocyte on in PM s in source Blood by data Automated count Eosinophi 0.0 - 0.4 K/mm3 Normal No Sep 9 ls informati 2016 5:25 [#/volume on in PM ] in source Blood by data Automated count Eosinophi 0.1 - % Normal No Sep 9 ls/100 12.0 informati 2017 5:25 leukocyte on in PM s in source Blood by data Automated count Granulocy 1.8 - 7.8 K/mm3 Normal No Sep 9 aníbal informati 2017 5:25 [#/volume on in PM ] in source Blood by data Automated count Granulocy 37.0 - % Normal No Sep 9 aníbal/100 80.0 informati 2016 5:25 leukocyte on in PM s in source Blood by data Automated count Hematocri 37.0 - % Normal No Sep 9 t [Volume 47.0 informati 2016 5:25 on in PM Fraction] source of Blood data Hemoglobi 12.2 - g/dL Normal No Sep 9 n 16.2 informati 2016 5:25 [Mass/vol on in PM ume] in source Blood data Lymphocyt 0.7 - 4.5 K/mm3 Normal No Sep 9 es informati 2016 5:25 [#/volume on in PM ] in source Unspecifi data ed specimen by Automated count Lymphocyt 10 - 50.0 % Normal No Sep 9 es informati 2016 5:25 [#/volume on in PM ] in source Unspecifi data ed specimen by Automated count Erythrocy 27 - 31.2 pg Normal No Sep 9 te mean inform2016 5:25 corpuscul on in PM ar source hemoglobi data n [Entitic mass] Erythrocy 31.8 - g/dl Normal No Sep 9 te mean 35.4 inform2016 5:25 corpuscul on in PM ar source hemoglobi data n concentra tion [Mass/vol ume] by Automated count Erythrocy 82.2 - fl Normal No Sep 9 te mean 97.8 informati 2016 5:25 corpuscul on in PM ar volume source [Entitic data volume] by Automated count Monocytes 0.1 - 1.0 K/mm3 Normal No Sep 9 informati 2016 5:25 [#/volume on in PM ] in source Blood by data Automated count Monocytes 1.7 - 9.3 % Normal No Sep 9 /100 inform2016 5:25 leukocyte on in PM s in source Blood by data Automated count Platelet 7.4 - fl Normal No Sep 9 mean 10.4 informati 2016 5:25 volume on in PM [Entitic source volume] data in Blood by Automated count Platelets 142 - 424 K/mm3 Normal No Sep 9 inform2016 5:25 [#/volume on in PM ] in source Blood data Erythrocy 4.2 - 5.4 M/mm3 Normal No Sep 9 aníbal informati 2016 5:25 [#/volume on in PM ] in source Amniotic data fluid Erythrocy 11.5 - % Normal No Sep 9 te 17.5 informati 2016 5:25 distribut on in PM ion width source [Entitic data volume] by Automated count Leukocyte 4.8 - K/MM3 Normal No Sep 9 s 10.8 informati 2016 5:25 [#/volume on in PM ] in source Blood data Choriogonadotropin [Units/volume] in Serum or Plasma Observa Value Referen Units Interpr Notes Date tion ce etation Range Choriogon NEG No No No Sep 9 adotropin informati informati informati 2016 5:25 on in on in on in PM [Units/vo source source source lume] in data data data Serum or Plasma Fibrin D-dimer FEU [Mass/volume] in Platelet poor plasma Observa Value Referen Units Interpr Notes Date tion ce etation Range Fibrin 0 - 400 ng/mL High Sep 9 D-dimer alert NOTIFICAT 2017 5:25 FEU ION PM [Mass/vol RESULT ume] in The Platelet D-Dimer poor values plasma are presented in units of mass(ng/m L) ofD-Dimer units(DDU ).This test has been FDA approved as an aid in the assessmen tand evaluatio n of suspected DIC, and thromboem bolic eventsinc luding PE and DVT. However, it does not have approvalf or cut-off values for the exclusion of these condition s. Streptococcus pyogenes Ag [Presence] in Unspecified specimen Observa Value Referen Units Interpr Notes Date tion ce etation Range Strepto NOT NOTDETE No No LOT # [place] 6 coccus DETECTE CTED informa informa N/A EXP 2017 pyogene D tion in tion in DATE 2:30 PM s Ag source source N/A [Presen data data ce] in Unspeci fied specime n
--- OUTSIDE RECORDS SUMMARY | 2017-09-27 10:40 | External Medical Summary Rpt ---
Author Author JERRY Villarreal, JERRY [employer] Organization [employer] Address Unknown Phone Unavailable [...]
--- OUTSIDE RECORDS SUMMARY | 2017-09-27 10:40 | External Medical Summary Rpt | CCD ---
Author Author , JERRY EDWARDS Address Unknown Phone [email or web address] Care Team Providers Care Toll Test Worker Name Role Phone Naif Conley MD, Unavailable Unavailable Naif Conley MD Purpose Continuity of Care Document - 11-16-2013 through 2016 Problems Code Diagnosis DOS Provider Status 644.03 644.03 THRT 11-17-2013 [facility] ART O28.3 Abnormal ultrasonic finding on screening [...] Conley MD (IN) 4 10:00 4 13:30 [facility]
[2017-09-27 10:59] VITALS: BP 145/88
[2017-09-27] MEDS ORDERED: MEDROL 4MG. DOSE4 MG PO (10:59)
[2017-09-27] MEDS ORDERED: BROMFED DM COU118 ML PO (10:59)
[2017-09-27] MEDS ORDERED: AUGMENTIN 875-1 EACH PO (10:59)
[2017-09-27] MEDS ORDERED: FLONASE 50 MCG16 GM (10:59)
--- NOTE | 2017-09-27 10:59 | Urgent Treatment Center Report ---
History of Present Issue Date/Time Seen by Provider 09/27/17 1048 Visit Reason Pt arrived:Walked Presenting Problem:PT C/O COUGH, SORE THROAT, AND CONGESTION. Location if Accident: Onset of symptoms date/time:/ or onset unknown for:MEDICAL HX UNKNOWN Have you (or family members/close friends) recently traveled outside the [place]? N If Yes, where/when: Have you had exposure to infectious disease within the past month? TB? Other? Specify: Patient state that she has had cough and congestion for several days State that her throat is sore and she is having sinus pressure and drainage States that her throat feels raw and has continued to get worse. State that her child and had the same syptoms but theirs has improved while hers has continued to get worse[ ALLERGIES Coded Allergies: azithromycin (Intermediate, I-HIVES 08/19/17) Home Medications Reported Medications VENLAFAXINE HCL (Venlafaxine HCl ER) 37.5 MG PO DAILY #30 History Medical History General CAD? No Angina: No [place]: No Hypertension? No Hyperlipidemia? No CHF? No DVT? No PE? No COPD? No Asthma? No Anemia? No GERD? No Gastric ulcers? No GI Bleed? No Hernia? No Thyroid Problems? No Hypothyroidism? No CVA? No Seizures? No Diabetes? No Renal Insuffiency? No UTI? Yes Stones? No GB Disease: Yes Nephritic Syndrome? No Asplenia? No Hepatitis? No Sickle Cell Disease? No Arthritis? No Migraines? No Cataracts? No Glaucoma? No MRSA? No HIV? No TB? No Anxiety? No Depression? No Cancer? 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 Respiratory cough, denies shortness of breath, denies wheezing Physical Exam Vital Signs Vital Signs Date Time Temp Pulse Resp B/P Pulse O2 O2 Flow FiO2 Ox Delivery Rate 09/27 1044 97.6 97 20 145/88 99 General Appearance normal appearance, WD/WN, no apparent distress Ear, Nose, Throat Throat red, irritated drainage noted, tenderness note maxillary sinuses Respiratory Status Yes: trachea midline, chest symmetrical, non tender chest. No: respiratory distress. Cardiovascular normal exam, regular rate/rhythm, no peripheral edema Neurologic alert, normal exam, oriented x 3 Medical Decision Making LABS/Meds/Orders Pt receiving controlled substance in ED? No Results/Orders Laboratory Tests 09/27/17 1049: Group A Strep Screen NOT DETECTED Orders Procedure Date/time Status [facility] STREP SCREEN 09/27 1049 Complete Departure Departure Time of Disposition 1053 Disposition DC Home or Self Care(routine) Clinical Impression Primary Impression: Upper respiratory infection Qualifiers: URI type: unspecified URI Qualified Code: J06.9 - Acute upper respiratory infection, unspecified Condition STABLE Referrals SULEIMAN RODRIGEZ (Family): 3 Days-Call Office Patient Instructions DI for Sinusitis, Sinus Headache, Sinusitis Additional Instructions * Monitor Temp. Tylenol and/or Ibuprofen as needed. ER if fever is no less than 101 despite alternating Tylenol and Ibuprofen * Encourage fluids, water, Gatorade, powerade, pedialyte if infant/toddler/or child * Warm salt water gargles for throat irritation *Warm fluids *Sore throat lozenges *Sleep elevated *humidifier or vaporizer Lots of rest Increase fluids, water, Gatorade, powerade *Flonase 2 sprays each nostril daily but may take 2-3 days to notice improvement with it *Bromfed may cause drowsiness. Know how it effect you or your child. Before driving, caring for small children or sending your child to school *Your throat swab was sent to lab for culture. Those results area typically sent to your primary care physician. Be sure to follow up in 2-3 days if no improvement so they can review those results and treat if necessary If you dont have primary care I recommend you get one, but in the mean time you will have to return to a walk in clinic Follow up IMMEDIATELY for new or worsening of symptoms OR no noticeable improvement over the next 48-72 hours. 911 immediately for any life threatening symptoms such as chest pain or difficulty breathing Discharge Counseling Counseled pt/family regarding diagnosis, medications/RX, home care, follow up needs Prescriptions Current Visit Scripts Amoxicillin/Potassium Clav (Augmentin 875-125 Tablet) 1 EACH PO BID #14 TAB D-METHORPHAN HB/P-EPD HCL/BPM (Bromfed Dm Cough Syrup) 10 ML PO Q4HP PRN cough #150 SYR Fluticasone Propionate (Flonase 50 Mcg Nasal [place]) 2 SPRAY NA DAILY #1 BOT Methylprednisolone (Medrol Dose Radha) 4 MG PO UD #1 RADHA TAKE DIRECTED ON PACKAGING at 0444
== END 2017-09-27 11:00 | disposition home or self-care (01) ==
LOC: UTC 10:36
DX: J06.9 Acute upper respiratory infection, unspecified (principal); Z88.1 Allergy status to other antibiotic agents